=== PATIENT | male | born 1970 | race Caucasian/White ===

== ENCOUNTER 2017-07-27 11:21 | Inpatient (IN) | payer OTHER, SELFPAY ==
[2017-07-27] MEDS ORDERED: Midazolam HCl 2 mg/2 ml Vial ONE (11:36)
[2017-07-27] MEDS ORDERED: Fentanyl 100 MCG/2 ML VIAL ONE (11:36)
[2017-07-27] MEDS ORDERED: Heparin 10,000 UNITS/1 ML VIAL ONE ×2 (11:48→12:14)
[2017-07-27] MEDS ORDERED: Atropine Sulfate 1 mg/10 ml Syringe ONE (11:48)
[2017-07-27 12:11] LABS: #Eosinphils 0.4 thou/uL (0.0-0.7); #Lymphocytes 3.6 thou/uL (1.20-3.40); #Monocytes 0.7 thou/uL (0.11-0.59); #Neutrophils 5.9 thou/uL (1.40-6.50); %Basophils 0.2 % (0.0-1.0); %Eosinophils 3.4 % (0.0-10.0); %Lymphocytes 34.4 % (21.0-51.0); %Monocytes 6.2 % (0.0-10.0); Mean Platelet Volume 6.9 fL (7.4-10.4); Red Blood Cell (RBC) Count 5.58 mill/uL (4.70-6.10); White Blood Cell (WBC) Count 10.6 thou/uL (4.8-10.8)
[2017-07-27] MEDS ORDERED: Nitroglycerin 100MG/250ML BOT 250 ML ONE (12:15)
[2017-07-27 12:19] LABS: ALT (SGPT) 52 U/L (8-55); AST (SGOT) 32 U/L (5-34); Alkaline Phosphatase 40 U/L (40-150); Anion Gap 12 mmol/L (10-20); BUN (Urea Nitrogen) 22 mg/dL (8.9-20.6); Bilirubin, Total 0.8 mg/dL (0.2-1.2); Calc. Creatinine Clearance 0 mL/min (70-130); Calcium 9.6 mg/dL (7.8-10.44); Carbon Dioxide 26 mmol/L (22-29); Chloride 104 mmol/L (98-107); Estimated GFR-MDRD Greater than 90; Globulin 3.1 g/dL (2.4-3.5); Protein, Total 7.1 g/dL (6.0-8.3)
[2017-07-27 12:22] LABS: Troponin I Less than 0.010 ng/mL (< 0.028)
[2017-07-27] MEDS ORDERED: Ondansetron HCl/PF 4 MG/2 ML Vial ONE (12:22)
[2017-07-27] MEDS ORDERED: TICAGRELOR 90 MG TABLET ONE (12:24)
[2017-07-27] MEDS ORDERED: Heparin 1000 UNIT/NS 500ML(OR) 500 ML ONE (12:24)
[2017-07-27 12:33] LABS: PTT 22.5 SEC (22.9-36.1)
[2017-07-27] MEDS ORDERED: Aggrastat 12.5 MG/250 ML 250 ML ONE (13:01)
[2017-07-27] MEDS ORDERED: Nitroglycerin 0.4 MG TAB 1 EACH SL PRN (13:17)
[2017-07-27] MEDS ORDERED: Morphine 4 MG/ML VIAL SLOW IVP PRN (13:17)
[2017-07-27] MEDS ORDERED: Sodium Chloride 0.9% 1,000 ML IV SCH ×2 (13:30→19:36)
[2017-07-27] MEDS ORDERED: Aggrastat 12.5 MG/250 ML 250 ML IVPB SCH (13:30)
[2017-07-27] MEDS ORDERED: TICAGRELOR 90 MG TABLET PO SCH (13:30)
[2017-07-27 14:24] LABS: #Basophils 0.1 thou/uL (0.0-0.2); #Eosinphils 0.1 thou/uL (0.0-0.7); #Lymphocytes 1.3 thou/uL (1.20-3.40); #Monocytes 0.4 thou/uL (0.11-0.59); #Neutrophils 12.1 thou/uL (1.40-6.50); %Basophils 0.4 % (0.0-1.0); %Eosinophils 0.4 % (0.0-10.0); %Lymphocytes 9.5 % (21.0-51.0); %Monocytes 2.9 % (0.0-10.0); Hematocrit 48.1 % (42.0-52.0); Mean Platelet Volume 6.5 fL (7.4-10.4); Red Blood Cell (RBC) Count 5.14 mill/uL (4.70-6.10); White Blood Cell (WBC) Count 13.9 thou/uL (4.8-10.8)
[2017-07-27 15:57] VITALS: BMI 28.3
--- NOTE | 2017-07-27 16:47 | EKG ---
Test Reason : POST STENT Blood Pressure : / mmHG Vent. Rate : 072 BPM Atrial Rate : 072 BPM P-R Int : 142 ms QRS Dur : 100 ms QT Int : 376 ms P-R-T Axes : 057 003 044 degrees QTc Int : 411 ms Sinus rhythm with marked sinus arrhythmia Inferior-posterior infarct (cited on or before 07-JUL-2016) Abnormal ECG Confirmed by UBALDO MCKAY ([id number]) on 07/27/2017 4:47:18 PM Referred By: JOSHUA Confirmed By:UBALDO MCKAY
[2017-07-27] MEDS ORDERED: Iopamidol 370 76% 50 ML VIAL FS ONE (17:05)
[2017-07-27] MEDS ORDERED: Iopamidol 370 76% 100 ML VIAL ONE (17:05)
[2017-07-27] MEDS: Ondansetron HCl/PF 4 MG/2 ML Vial SLOW IVP PRN (18:00)
[2017-07-27] MEDS ORDERED: Sodium Chloride 0.9% 500 ML IVPB SCH (18:00)
[2017-07-27 18:51] LABS: #Eosinphils 0.1 thou/uL (0.0-0.7); #Lymphocytes 2.6 thou/uL (1.20-3.40); #Monocytes 0.8 thou/uL (0.11-0.59); #Neutrophils 7.1 thou/uL (1.40-6.50); %Basophils 0.4 % (0.0-1.0); %Eosinophils 0.7 % (0.0-10.0); %Lymphocytes 24.6 % (21.0-51.0); %Monocytes 7.5 % (0.0-10.0); Hematocrit 46.1 % (42.0-52.0); Mean Platelet Volume 6.3 fL (7.4-10.4); Red Blood Cell (RBC) Count 4.93 mill/uL (4.70-6.10); White Blood Cell (WBC) Count 10.5 thou/uL (4.8-10.8)
[2017-07-27 19:18] LABS: Troponin I 17.513 ng/mL (< 0.028)
--- NOTE | 2017-07-27 20:17 | HP ---
REASON FOR ADMISSION: Acute myocardial infarction. PRIMARY OSCILLOGRAPH TECHNICIAN: Dr. Stefan Talamantes. HISTORY OF PRESENT ILLNESS: Mr. 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 He had been doing well, but had st opped taking all his medicines sometime in the past. In the onset of severe substernal chest pain, t he pain going across his chest and an ambulance was called, he was found to be having an acute inferi or myocardial infarction and transported here. PAST MEDICAL HISTORY: Acute inferior myocardial infarction treated with 4.0 mm x 16 mm nondrug coate d stent by Dr. Talamantes 1 year ago. MEDICATIONS PRESCRIBED: Included aspirin, statin, Plavix, carvedilol and lisinopril, but the patient was not taking any medicines. He states "I'll never do that again." SOCIAL HISTORY: He did report smoking some marijuana. Does not smoke tobacco. FAMILY HISTORY: Negative for heart disease at a young age. REVIEW OF SYSTEMS: Constitutional: No significant weight gain or loss. Vision: No changes. Heari ng: No changes. Pulmonary: No cough or wheezing. Gastrointestinal: No nausea, vomiting or diarrh ea. Skin: No rashes. Neurologic: No unilateral weakness or numbness. Psychiatric: No unusual de pression or anxiety. PHYSICAL EXAMINATION: GENERAL: This is a very ill-appearing gentleman with severe substernal chest pain and pain going acr oss his chest, very uncomfortable. VITAL SIGNS: Blood pressure 120/70 and pulse 60. EYES: Sclerae nonicteric. MOUTH: Mucous membranes are moist. NECK: Supple. No lymphadenopathy. LUNGS: Clear. No wheezing, rales or rhonchi. CARDIAC: Normal S1, normal S2. There is no murmur, rub or gallop. ABDOMEN: Soft and nontender. No hepatosplenomegaly. EXTREMITIES: Warm and dry. No clubbing or cyanosis. There is no edema. IMAGING DATA: EKG: Normal sinus rhythm. ST elevation in the inferior leads. ASSESSMENT: 1. Acute anterior myocardial infarction. 2. Noncompliance with medication and followup. 3. Previous myocardial infarction treated successfully stent implantation. PLAN: Discussed the situation, recommended the patient go immediately for cardiac catheterization. Discussed the risks of stroke, heart attack, IODINE allergy, loss of blood supply to the leg or kidne y, stent thrombosis, stent restenosis. He understood and wished to proceed.
[2017-07-27] MEDS: TICAGRELOR 90 MG TABLET PO SCH (21:21)
[2017-07-27] MEDS: Famotidine 20 MG TAB PO SCH (21:21)
[2017-07-27] MEDS: Carvedilol 3.125 MG TAB PO SCH (21:22)
[2017-07-27] MEDS: Atorvastatin Calcium 40 MG TAB PO SCH (21:22)
[2017-07-28] MEDS: Ondansetron HCl/PF 4 MG/2 ML Vial SLOW IVP PRN
[2017-07-28 01:56] LABS: #Basophils 0.1 thou/uL (0.0-0.2); #Eosinphils 0.3 thou/uL (0.0-0.7); #Lymphocytes 2.5 thou/uL (1.20-3.40); #Monocytes 0.9 thou/uL (0.11-0.59); #Neutrophils 8.3 thou/uL (1.40-6.50); %Basophils 0.6 % (0.0-1.0); %Eosinophils 2.1 % (0.0-10.0); %Lymphocytes 20.8 % (21.0-51.0); %Monocytes 7.7 % (0.0-10.0); Hematocrit 46.2 % (42.0-52.0); Mean Platelet Volume 6.2 fL (7.4-10.4); Red Blood Cell (RBC) Count 4.93 mill/uL (4.70-6.10)
[2017-07-28 05:05] LABS: #Eosinphils 0.3 thou/uL (0.0-0.7); #Lymphocytes 3.3 thou/uL (1.20-3.40); #Neutrophils 5.9 thou/uL (1.40-6.50); %Basophils 0.5 % (0.0-1.0); %Eosinophils 2.7 % (0.0-10.0); %Lymphocytes 31.4 % (21.0-51.0); %Monocytes 9.6 % (0.0-10.0); Hematocrit 46.3 % (42.0-52.0); Mean Platelet Volume 6.4 fL (7.4-10.4); Red Blood Cell (RBC) Count 4.93 mill/uL (4.70-6.10); White Blood Cell (WBC) Count 10.5 thou/uL (4.8-10.8)
[2017-07-28 05:26] LABS: ALT (SGPT) 51 U/L (8-55); AST (SGOT) 76 U/L (5-34); Alkaline Phosphatase 33 U/L (40-150); Anion Gap 9 mmol/L (10-20); BUN (Urea Nitrogen) 13 mg/dL (8.9-20.6); Bilirubin, Total 0.7 mg/dL (0.2-1.2); Calc. Creatinine Clearance 180 mL/min (70-130); Calcium 8.6 mg/dL (7.8-10.44); Carbon Dioxide 24 mmol/L (22-29); Chloride 108 mmol/L (98-107); Cholesterol 165 mg/dl (< 200 Desired); Estimated GFR-MDRD Greater than 90; Globulin 2.9 g/dL (2.4-3.5); LDL Cholesterol, Calculated 113 mg/dL; Protein, Total 6.3 g/dL (6.0-8.3)
[2017-07-28 07:59] LABS: Troponin I 10.992 ng/mL (< 0.028)
[2017-07-28] MEDS: Famotidine 20 MG TAB PO SCH ×2 (08:32→22:18)
[2017-07-28] MEDS: Carvedilol 3.125 MG TAB PO SCH ×2 (08:35→21:05)
[2017-07-28] MEDS: TICAGRELOR 90 MG TABLET PO SCH ×2 (08:35→21:05)
[2017-07-28] MEDS ORDERED: Lisinopril 2.5 MG TAB PO SCH (09:00)
--- NOTE | 2017-07-28 12:39 | EKG ---
Test Reason : Blood Pressure : / mmHG Vent. Rate : 072 BPM Atrial Rate : 072 BPM P-R Int : 130 ms QRS Dur : 094 ms QT Int : 378 ms P-R-T Axes : 035 003 031 degrees QTc Int : 413 ms Normal sinus rhythm ST elevation, consider early repolarization, pericarditis, or injury Inferior infarct (cited on or before 07-JUL-2016) Abnormal ECG Confirmed by UBALDO MCKAY ([id number]) on 07/28/2017 12:39:39 PM Referred By: JOSHUA Confirmed By:UBALDO MCKAY
[2017-07-28] MEDS: Acetaminophen 325 MG TAB PO PRN ×2 (12:57→21:06)
--- NOTE | 2017-07-28 15:00 | CON ---
DATE OF SERVICE: 07/28/2017 SERVICE: Pulmonary Medicine. REASON FOR CONSULTATION: ICU patient. HISTORY OF PRESENT ILLNESS: The patient is a 47-year-old white male with past medical history signif icant for coronary artery disease. He underwent cardiac catheterization several years ago following a ST elevation ND. A stent was placed. Ultimately, he has lost to follow up. He was in his usual s [place] of health, playing a new video game with his buddies. He started having onset of chest discomfo rt that came on very suddenly. It occurred while he was resting. It was reminiscent of his previous ly acute coronary syndrome and he presented immediately to the hospital where he was discovered to nolan ve occlusion of the RCA associated with an ST elevation ND. He was taken down emergently for cardiac catheterization and occluded vessel was identified and subsequently stented x2. After this vessel w as opened up, he had immediate resolution in symptoms. He currently denies any fevers, chills, nause a, vomiting, or chest discomfort that preceded this event. PAST MEDICAL HISTORY: Coronary artery disease. PAST SURGICAL HISTORY: History of percutaneous coronary intervention 1 year ago and repeat cardiac c atheterization yesterday. SOCIAL HISTORY: He has a history of tobacco abuse, but does not use being currently. He quit roughl y one year ago with his previous ND. He is a social drinker, but does not drink to excess ever. He denies any illicit drugs other than some occasional marijuana. He denies any exposure to chemicals, dust, asbestos or tuberculosis. FAMILY HISTORY: Noncontributory. ALLERGIES: No known drug allergies. MEDICATIONS: List of his inpatient medications was reviewed. No specific updates were made. REVIEW OF SYSTEMS: General, head, ears, eyes, nose, throat, cardiovascular, respiratory, GI, , mus culoskeletal, neurologic and skin is negative except as mentioned in the HPI. PHYSICAL EXAMINATION: VITAL SIGNS: Afebrile, pulse 72, blood pressure 110/65, respirations 19, saturation 92% on room air. GENERAL: Patient is awake, alert, in no apparent distress. LUNGS: Decent air entry. There is no prolonged expiratory phase, wheezing, rhonchi or crackles. HEART: Normal rate, regular. ABDOMEN: Soft, nontender, nondistended. Bowel sounds positive. MUSCULOSKELETAL: No cyanosis or clubbing. No pitting in the bilateral lower extremities. NEUROLOGIC: Grossly nonfocal. LABORATORY DATA: WBC 10.5, hemoglobin 15.3, platelets 273,000. INR 1.0. Basic metabolic profile an d liver function studies are unremarkable. Troponin is 17.5 and is decreasing to 10.9. Original one was negative. Lipid profile is essentially unremarkable. ASSESSMENT: ST elevation myocardial infarction. PLAN: The patient is doing fantastic from a respiratory standpoint. At this point, he can likely be downgraded to telemetry, but I will leave this to Cardiology. Pulmonary will continue to follow deb sullivan while remains in this location.
--- NOTE | 2017-07-28 15:58 | PRG ---
DATE OF SERVICE: 07/28/2017 SUBJECTIVE: Mr. Malave is doing well. No chest pain or pressure noted. His main complaint is headach e. OBJECTIVE: CURRENT VITAL SIGNS: Blood pressure 116/85, pulse 82, temperature afebrile. GENERAL: Patient is a pleasant male who is in no acute distress. The patient appears his stated age . NEUROLOGIC: The patient is alert and oriented times 3 with no focal neurologic deficits. HEENT: Sclerae without icterus. Mouth has moist mucous membranes with normal pallor. NECK: No JVD. Carotid upstroke brisk. No bruits bilaterally. LUNGS: Clear to auscultation with unlabored respirations. BACK: No scoliosis or kyphosis. CARDIAC: Regular rate and rhythm with normal S1 and S2. No S3 or S4 noted. No significant rubs, mu rmurs, thrills, or gallops noted throughout the precordium. PMI is not displaced. There is no jodi ternal heave. ABDOMEN: Soft, nontender, nondistended. No peritoneal signs present. No hepatosplenomegaly. No ab normal striae. EXTREMITIES: 2+ femoral and 2+ dorsalis pedis pulses. No cyanosis, clubbing, or edema. SKIN: No gross abnormalities. PERTINENT LABORATORY DATA: Hemoglobin 15.3, volume 17. IMPRESSION: Acute myocardial infarction. RECOMMENDATIONS: 1. Continue aspirin, Plavix, and Coreg. 2. Check echo Doppler. 3. Ambulate. 4. Anticipate discharge in the morning. 5. I did review his current angio versus his angio a year ago. The diagonal branch appears unchange d. We will continue aggressive medical therapy.
[2017-07-28] MEDS: Atorvastatin Calcium 40 MG TAB PO SCH (21:05)
[2017-07-29] MEDS ORDERED: Nitroglycerin 0.4 MG TAB (25 Tab Bottle) SL PRN (05:26)
--- NOTE | 2017-07-29 06:37 | DIS ---
DISCHARGE DIAGNOSIS: Acute myocardial infarction. PROCEDURE: Stent placed to the right coronary artery. HOSPITAL COURSE: Mr. Malave is a very pleasant 47-year-old gentleman who I have seen and evaluated in the past. He underwent stent placement for an [place] 1 year ago to the circumflex artery. He had modera te to severe disease present to the LAD, diagonal branch and right coronary artery. He was treated m edically. He presented with acute onset of chest pain. He was found to have complete occlusion of the right co ronary artery. He underwent successful stent placement by Dr. Radha Youngblood. He did have a diagonal branch that appeared subtotal in 2016 and appears unchanged. His hospital course was unremarkable. DISCHARGE MEDICATIONS: Include aspirin 81 q.a.m., atorvastatin 40 daily, carvedilol 3.125 p.o. b.i.d ., Plavix 75 daily. CONDITION AT DISCHARGE: Stable.
[2017-07-29] MEDS ORDERED: Clopidogrel Bisulfate 75 MG TAB PO SCH (09:00)
[2017-07-29] MEDS: Famotidine 20 MG TAB PO SCH (09:02)
[2017-07-29] MEDS: Carvedilol 3.125 MG TAB PO SCH (09:02)
[2017-07-29 09:08] VITALS: BP 142/91; TEMP 97.7
== END 2017-07-29 10:53 | disposition home or self-care (01) | DRG 247 ==
LOC: ERS 11:21 → CCU 11:26 → 2NO 07-28 17:08
PROVIDERS: ADMIT Internal Medicine Cardiovascular Disease; ATTEND Internal Medicine Cardiovascular Disease
PROC: 027034Z Dilation of Coronary Artery, One Artery with Drug-eluting Intraluminal Device, Percutaneous Approach (ICD-10-PCS; principal; 2017-07-27)
PROC: 4A023N7 Measurement of Cardiac Sampling and Pressure, Left Heart, Percutaneous Approach (ICD-10-PCS; 2017-07-27)
PROC: B2111ZZ Fluoroscopy of Multiple Coronary Arteries using Low Osmolar Contrast (ICD-10-PCS; 2017-07-27)
PROC: B2151ZZ Fluoroscopy of Left Heart using Low Osmolar Contrast (ICD-10-PCS; 2017-07-27)
DX: I21.09 ST elevation (STEMI) myocardial infarction involving other coronary artery of anterior wall (principal); F12.90 Cannabis use, unspecified, uncomplicated; I25.10 Atherosclerotic heart disease of native coronary artery without angina pectoris; Z91.14 Patient's other noncompliance with medication regimen; Z95.5 Presence of coronary angioplasty implant and graft; Z79.82 Long term (current) use of aspirin; Z87.891 Personal history of nicotine dependence
CPT/HCPCS: 36415; 76942; 80053; 80061; 82553; 84484; 85025; 85347; 85610; 85730; 92928; 93005; 93010; 93458; 99152; 99153; C1769; C1874; C1887; C9600; J0461; J1644; J2250; J2405; J3010; J3246; J7050